=== PATIENT | female | born 1995 | race African-American/Black ===

== ENCOUNTER 2017-12-29 17:35 | Emergency (ER) | payer SELFPAY ==
[~2017-12-29] VITALS: Ht 160 cm; Wt 54.4 kg
[2017-12-29 19:04] LABS: Urine Bacteria MOD /hpf (None Seen); Urine Blood Negative /uL (Negative); Urine Mucus FEW (None Seen); Urine Specific Gravity 1.014 (1.001-1.035); Urine WBC 10 /hpf (0 - 5)
[2017-12-29 19:29] LABS: Basophils # (auto) 0 uL; Hemoglobin 14.9 g/dL (12.2-16.2); Lymphocytes # (auto) 1.9 uL
[2017-12-29 19:33] LABS: Basophils % (auto) 0.2 % (0.0-2.0); Eosinophils # (auto) 0.8 uL; Eosinophils % (auto) 5.8 % (0.0-7.0); Hematocrit 44.9 % (36.0-46.0); Lymphocytes % (auto) 14.7 % (10.0-50.0); Mean Corpuscular Hemoglobin 26.8 pg (28.0-32.0); Mean Corpuscular Hgb Conc. 33.2 g/dL (32.0-36.0); Mean Corpuscular Volume 80.8 fL (80.0-100.0); Monocytes % (auto) 7.6 % (0.0-12.0); Neutrophils # (auto) 9.4 uL; Neutrophils % (auto) 71.7 % (37.0-80.0); Nucleated Red Blood Cells % 0.1 %; Platelet Count (auto) 279 10^3/uL (140-450); Red Blood Cells 5.56 10^6/uL (4.0-5.20); White Blood Cell 13.1 10^3/uL (4.4-10.8)
[2017-12-29 19:49] LABS: Albumin 3.6 g/dL (3.4-5.0); Calcium 8.5 mg/dL (8.5-10.1); Potassium 3.4 mmol/L (3.5-5.1)
[2017-12-29 19:51] LABS: BUN/Creatinine Ratio 4.2
[2017-12-29 19:54] LABS: Bilirubin, Total 0.8 mg/dL (0.2-1.0)
[2017-12-29 20:03] VITALS: BP 134/69
== END 2017-12-29 20:11 | disposition home or self-care (01) ==
LOC: ER 17:35
DX: N39.0 Urinary tract infection, site not specified (principal)
CPT/HCPCS: 36415; 80053; 81001; 81025; 83690; 85025

== ENCOUNTER 2018-02-25 23:15 | Emergency (ER) | payer MEDICAID, OTHER ==
[~2018-02-25] VITALS: Ht 160 cm; Wt 59.0 kg
[2018-02-25] MEDS ORDERED: ALBUTEROL SULF 2.5 MG/0.5ML(0.5%) NEB SOLN NEB ONE (23:30)
[2018-02-25] MEDS ORDERED: IPRATROPIUM BROM 0.5 MG/2.5ML INH SOL NEB ONE (23:30)
[2018-02-26 00:01] LABS: Basophils # (auto) 0 uL; Basophils % (auto) 0.3 % (0.0-2.0); Eosinophils # (auto) 0.3 uL; Hematocrit 43.2 % (36.0-46.0); Hemoglobin 13.8 g/dL (12.2-16.2); Lymphocytes # (auto) 1.9 uL; Lymphocytes % (auto) 14.2 % (10.0-50.0); Mean Corpuscular Hemoglobin 25.8 pg (28.0-32.0); Mean Corpuscular Volume 80.6 fL (80.0-100.0); Monocytes % (auto) 7.2 % (0.0-12.0); Neutrophils # (auto) 10.5 uL; Neutrophils % (auto) 76.3 % (37.0-80.0); Platelet Count (auto) 285 10^3/uL (140-450); Red Blood Cells 5.35 10^6/uL (4.0-5.20); Red Cell Distribution Width 15.5 % (11.8-14.3); White Blood Cell 13.7 10^3/uL (4.4-10.8)
[2018-02-26 00:14] LABS: Albumin 3.7 g/dL (3.4-5.0); BUN/Creatinine Ratio 9.3; Calcium 8.9 mg/dL (8.5-10.1); Potassium 4.5 mmol/L (3.5-5.1)
[2018-02-26 00:20] LABS: Bilirubin, Total 0.5 mg/dL (0.2-1.0); Total Protein 7.1 g/dL (6.4-8.2)
[2018-02-26] MEDS ORDERED: methylPREDNISolone SOD SUCC 125 MG/2 ML VL ONE (01:07)
[2018-02-26] MEDS ORDERED: SODIUM CHLORIDE 0.9% 1,000 ML IV ONE (01:15)
[2018-02-26] MEDS ORDERED: methylPREDNISolone SOD SUCC 125 MG/2 ML VL IV ONE (01:15)
[2018-02-26] MEDS ORDERED: LEVOFLOXACIN 750MG 150 ML IV ONE (01:15)
[2018-02-26 02:52] VITALS: BP 133/71
== END 2018-02-26 03:04 | disposition home or self-care (01) ==
LOC: EDBD 23:15 → ER 23:22
DX: J20.9 Acute bronchitis, unspecified (principal); J45.901 Unspecified asthma with (acute) exacerbation
CPT/HCPCS: 36415; 71045; 80053; 84702; 85025; 94640; 94660; 94761; 96365; 96375; 99284; J1956; J2930; J7030; J7611; J7644

== ENCOUNTER 2018-03-02 21:42 | Emergency (ER) | payer MEDICAID ==
[~2018-03-02] VITALS: Ht 160 cm; Wt 53.1 kg
[2018-03-02] MEDS ORDERED: methylPREDNISolone SOD SUCC 125 MG/2 ML VL IV ONE (22:00)
[2018-03-02] MEDS ORDERED: IPRATROPIUM BROM 0.5 MG/2.5ML INH SOL NEB ONE (22:00)
[2018-03-02] MEDS ORDERED: ALBUTEROL SULF 2.5 MG/0.5ML(0.5%) NEB SOLN NEB ONE (22:00)
[2018-03-02 22:17] LABS: Basophils # (auto) 0 uL; Basophils % (auto) 0.3 % (0.0-2.0); Hemoglobin 14.6 g/dL (12.2-16.2); Lymphocytes # (auto) 2.8 uL; Monocytes # (auto) 1.1 uL
[2018-03-02 22:18] LABS: Eosinophils # (auto) 0.5 uL; Eosinophils % (auto) 3.6 % (0.0-7.0); Hematocrit 43.9 % (36.0-46.0); Lymphocytes % (auto) 20.3 % (10.0-50.0); Mean Corpuscular Hemoglobin 26.3 pg (28.0-32.0); Mean Corpuscular Hgb Conc. 33.3 g/dL (32.0-36.0); Mean Corpuscular Volume 78.8 fL (80.0-100.0); Monocytes % (auto) 8.3 % (0.0-12.0); Neutrophils # (auto) 9.3 uL; Neutrophils % (auto) 67.5 % (37.0-80.0); Nucleated Red Blood Cells % 0.1 %; Platelet Count (auto) 249 10^3/uL (140-450); Red Blood Cells 5.57 10^6/uL (4.0-5.20); Red Cell Distribution Width 15.3 % (11.8-14.3); White Blood Cell 13.7 10^3/uL (4.4-10.8)
[2018-03-02 22:30] LABS: Alanine Aminotransferase 14 U/L (13-56); Albumin 3.2 g/dL (3.4-5.0); Anion Gap 9 (5-15); Aspartate Aminotransferase 27 U/L (15-37); BUN/Creatinine Ratio 8.2; Blood Urea Nitrogen 7 mg/dL (7-18); Calcium 8.2 mg/dL (8.5-10.1); Carbon Dioxide 23 mmol/L (21-32); Chloride 103 mmol/L (98-107); GFR African American 105 mL/min; GFR Non-African American 87 mL/min; Glucose 113 mg/dL (74-106); Potassium 4.2 mmol/L (3.5-5.1); Sodium 135 mmol/L (136-145)
[2018-03-02 22:34] LABS: Alkaline Phosphatase 48 U/L (45-117); Bilirubin, Total 0.6 mg/dL (0.2-1.0); Total Protein 6.4 g/dL (6.4-8.2)
[2018-03-02] MEDS ORDERED: LEVOFLOXACIN 750MG 150 ML IV ONE (23:00)
[2018-03-03 01:45] VITALS: BP 120/81
== END 2018-03-03 01:52 | disposition home or self-care (01) ==
LOC: EDBD 21:42 → ER 21:48
DX: J45.901 Unspecified asthma with (acute) exacerbation (principal); J06.9 Acute upper respiratory infection, unspecified; D72.829 Elevated white blood cell count, unspecified
CPT/HCPCS: 36415; 71045; 80053; 84484; 84702; 85025; 93005; 94640; 96365; 96375; 99284; J1956; J2930; J7030; J7611; J7644

== ENCOUNTER 2018-04-28 12:19 | Emergency (ER) | payer MEDICAID, OTHER ==
[~2018-04-28] VITALS: Ht 165.1 cm; Wt 52.2 kg
[2018-04-28] MEDS ORDERED: IPRATROPIUM BROM 0.5 MG/2.5ML INH SOL HHN ONE (13:00)
[2018-04-28] MEDS ORDERED: methylPREDNISolone SOD SUCC 125 MG/2 ML VL IV ONE (13:00)
[2018-04-28] MEDS ORDERED: ALBUTEROL SULF 2.5 MG/0.5ML(0.5%) NEB SOLN HHN ONE (13:00)
[2018-04-28 15:15] LABS: Albumin 3.7 g/dL (3.4-5.0); BUN/Creatinine Ratio 9.5; Calcium 8.7 mg/dL (8.5-10.1); Potassium 3.4 mmol/L (3.5-5.1)
[2018-04-28 15:17] LABS: Bilirubin, Total 0.4 mg/dL (0.2-1.0); Total Protein 7.3 g/dL (6.4-8.2)
[2018-04-28 15:25] LABS: Basophils # (auto) 0 uL; Basophils % (auto) 0.2 % (0.0-2.0); Eosinophils # (auto) 0.1 uL; Hemoglobin 14.8 g/dL (12.2-16.2); Lymphocytes # (auto) 1.5 uL; Monocytes # (auto) 0.8 uL; Platelet Count (auto) 324 10^3/uL (140-450); White Blood Cell 11.8 10^3/uL (4.4-10.8)
[2018-04-28 15:28] LABS: Hematocrit 45.5 % (36.0-46.0); Lymphocytes % (auto) 12.4 % (10.0-50.0); Mean Corpuscular Hemoglobin 26.1 pg (28.0-32.0); Mean Corpuscular Hgb Conc. 32.6 g/dL (32.0-36.0); Mean Corpuscular Volume 79.9 fL (80.0-100.0); Monocytes % (auto) 6.8 % (0.0-12.0); Neutrophils # (auto) 9.4 uL; Neutrophils % (auto) 79.6 % (37.0-80.0); Red Blood Cells 5.69 10^6/uL (4.0-5.20); Red Cell Distribution Width 15.8 % (11.8-14.3)
[2018-04-28 16:47] VITALS: BP 110/73
== END 2018-04-28 16:52 | disposition home or self-care (01) ==
LOC: EDBD 12:19 → ER 12:25
DX: J45.901 Unspecified asthma with (acute) exacerbation (principal)
CPT/HCPCS: 36415; 71045; 80053; 85025; 94644; 94761; 96374; 99285; J2930; J7611; J7644; 94640